=== PATIENT | female | born 1990 | race Caucasian/White ===

== ENCOUNTER 2018-04-14 17:59 | Inpatient (IN) | payer OTHER ==
[~2018-04-14] VITALS: Ht 162.6 cm; Wt 1.8 kg
[~2018-04-14 17:59] MED LIST: CITRANATAL B-C1 EAC1; IRON325 MG PO; VISTARIL25 MG PO
== END 2018-04-16 18:46 | disposition home or self-care (01) | DRG 807 ==
LOC: OBS/DEL 17:59 → LDR 22:41 → OB/GYN 22:41
PROC: 10E0XZZ Delivery of Products of Conception, External Approach (ICD-10-PCS; principal; 2018-04-14)
PROC: 4A1HXCZ Monitoring of Products of Conception, Cardiac Rate, External Approach (ICD-10-PCS; 2018-04-14)
DX: O60.14X0 Preterm labor third trimester with preterm delivery third trimester, not applicable or unspecified (principal); Z37.0 Single live birth; Z3A.34 34 weeks gestation of pregnancy; Z22.330 Carrier of Group B streptococcus